=== PATIENT | female | born 1990 | race Two or more races ===

== ENCOUNTER 2018-04-07 09:45 | Emergency (ER) | payer SELFPAY ==
[~2018-04-07] VITALS: Ht 154.9 cm; Wt 79.5 kg
[2018-04-07 10:40] LABS: URINE BILIRUBIN - DIPSTICK NEGATIVE (NEGATIVE); URINE BLOOD DIPSTICK NEGATIVE (NEGATIVE); URINE COLOR YELLOW; URINE GLUCOSE - DIPSTICK NEGATIVE (NEGATIVE); URINE KETONE NEGATIVE (NEGATIVE); URINE LEUK ESTERASE TRACE (NEGATIVE); URINE NITRITE - DIPSTICK NEGATIVE (Negative); URINE PH 7.5 (4.5-8.0); URINE PROTEIN - DIPSTICK NEGATIVE (NEG-TRACE); URINE UROBILINOGEN - DIPSTICK 0.2 E.U./dL (0.2)
[2018-04-07 10:46] LABS: HEMATOCRIT 41.4 % (37.0-47.0); IMMATURE GRANULOCYTES 0.4 % (0.0-5.0); MEAN CELL VOLUME 92.8 fL CALC (80.0-100.0); MEAN CORPUSCULAR HGB 31.4 pG CALC (26.0-32.0); MEAN CORPUSCULAR HGB CONC 33.8 g/L CALC (32.0-36.0); NEUT# 7.81 thou/uL (2.00-7.15); RED BLOOD COUNT 4.46 mill/uL (4.20-5.60); RED CELL DISTRI WIDTH 11.8 % (11.5-15.5); URINE CLARITY SL CLOUDY
[2018-04-07 11:04] LABS: ALBUMIN 4.6 g/dL (3.2-5.0); ALKALINE PHOSPHATASE 77 u/l (38-126); ANION GAP 14 (6-22 (CALC)); BILIRUBIN, TOTAL 0.5 mg/dL (0.0-1.4); BUN 13 mg/dL (7-17); BUN/CREATININE RATIO 19 (12-20 (CALC)); CARBON DIOXIDE 29 mmol/l (22-30); CHLORIDE 105 mmol/l (95-108); CREATININE 0.7 mg/dL (0.5-1.0); GFR > 60 ML/MIN (>=60 (CALC)); GFR FOR AFR.AMER. > 60 ML/MIN (>=60 (CALC)); LIPASE 37 u/l (23-300); SGOT/AST 37 u/l (14-36); SODIUM 143 mmol/l (137-146); TOTAL PROTEIN 8.2 g/dL (6.3-8.2)
[2018-04-07] MEDS ORDERED: EPIPEN 2-P0.3 MG/0.3 IM (14:25)
[2018-04-07] MEDS ORDERED: PREDNISONE50 MG PO (14:25)
[2018-04-07 14:44] VITALS: BP 113/65
== END 2018-04-07 14:43 | disposition home or self-care (01) | DRG 392 ==
LOC: ED 09:45
PROVIDERS: Family Medicine
DX: K52.9 Noninfective gastroenteritis and colitis, unspecified (principal); R06.00 Dyspnea, unspecified; L29.8 Other pruritus; T50.8X5A Adverse effect of diagnostic agents, initial encounter; B19.20 Unspecified viral hepatitis C without hepatic coma; F17.210 Nicotine dependence, cigarettes, uncomplicated; Y92.238 Other place in hospital as the place of occurrence of the external cause
CPT/HCPCS: Q9967

== ENCOUNTER 2019-06-25 | Emergency (ER) | payer SELFPAY ==
[~2019-06-25] MED LIST: EPIPEN 2-P0.3 MG/0.3 IM; PREDNISONE50 MG PO
[2019-06-25] MEDS ORDERED: TRAMADOL HCL50 MG PO (22:01)
[2019-06-25] MEDS ORDERED: MOTRIN800 MG PO (22:01)
[2019-06-25] MEDS ORDERED: AMOXICILLIN500 MG PO (22:01)
== END 2019-06-25 22:38 | disposition home or self-care (01) | DRG 159 ==
DX: K04.7 Periapical abscess without sinus (principal); K02.9 Dental caries, unspecified; F17.210 Nicotine dependence, cigarettes, uncomplicated

== ENCOUNTER 2019-11-18 13:19 | Emergency (ER) | payer SELFPAY ==
[~2019-11-18 13:19] MED LIST changes: +AMOXICILLIN500 MG PO; +MOTRIN800 MG PO; +TRAMADOL HCL50 MG PO
[2019-11-18] MEDS ORDERED: AMOXICILLIN500 M2 PO (13:45)
[2019-11-18] MEDS ORDERED: IBUPROFEN600 MG PO (13:45)
[2019-11-18] MEDS ORDERED: CLEOCIN300 MG PO (13:45)
[2019-11-18] MEDS ORDERED: CYCLOBENZAPR5 MG PO (13:46)
[2019-11-18 13:50] VITALS: BP 128/72
== END 2019-11-18 13:50 | disposition home or self-care (01) | DRG 159 ==
LOC: ED 13:19
DX: K03.81 Cracked tooth (principal); F17.210 Nicotine dependence, cigarettes, uncomplicated